=== PATIENT | male | born 1960 | race Caucasian/White ===

== ENCOUNTER 2022-08-31 05:56 | Day surgery (SDC) | payer MEDICARE, MEDICAID ==
[~2022-08-31] VITALS: Ht 160 cm; Wt 88.9 kg
[~2022-08-31 05:56] MED LIST: ASPI81TA26 PO; FENO145T7 PO; LISI10TA22 PO; METF500T13 PO; MULT-90 PO; OMEP-173 PO; SIMV40TA20 PO
[2022-08-31] MEDS ORDERED: LIDOCAINE 3.5 % 1ML OPHTH TOPICAL GEL OU ONE (06:00)
[2022-08-31] MEDS ORDERED: LIDOCAINE 1% SDV 5ML VIAL As Ordered ONE (06:47)
[2022-08-31] MEDS ORDERED: CEFUROXIME 1MG/0.1ML INTRACAMERAL INJ As Ordered ONE (06:48)
[2022-08-31] MEDS ORDERED: MIDAZOLAM INJ 2MG/2ML VIAL As Ordered ONE (07:06)
[2022-08-31] MEDS ORDERED: fentaNYL 100 MCG/2 ML INJECTION As Ordered ONE (07:06)
[2022-08-31] MEDS ORDERED: mitoMYcin 0.2 MG/VIAL KIT FOR OPHTHALMIC USE As Ordered ONE (07:07)
[2022-08-31] MEDS ORDERED: POVIDONE-IODINE 5% OPHTH PREP SOL 30ML As Ordered ONE (07:46)
[2022-08-31 08:00] VITALS: BP 124/59
== END 2022-08-31 08:15 | disposition home or self-care (01) ==
LOC: M SDC 05:56
PROVIDERS: ATTEND Ophthalmology
DX: H40.1110 Primary open-angle glaucoma, right eye, stage unspecified (principal); I10 Essential (primary) hypertension; E78.5 Hyperlipidemia, unspecified; E11.9 Type 2 diabetes mellitus without complications; Z79.82 Long term (current) use of aspirin; Z79.899 Other long term (current) drug therapy
CPT/HCPCS: 66183; C1783; J2250; J3010; J7315

== ENCOUNTER 2022-09-14 06:16 | Day surgery (SDC) | payer MEDICARE, MEDICAID ==
[~2022-09-14] VITALS: Ht 154.9 cm; Wt 87.1 kg
[~2022-09-14 06:16] MED LIST changes: +LIDOCAINE 3.5 % 1ML OPHTH TOPICAL GEL OU ONE
[2022-09-14] MEDS ORDERED: LIDOCAINE 1% SDV 5ML VIAL As Ordered ONE ×2 (06:43→07:37)
[2022-09-14] MEDS ORDERED: CEFUROXIME 1MG/0.1ML INTRACAMERAL INJ As Ordered ONE (06:44)
[2022-09-14] MEDS ORDERED: mitoMYcin 0.2 MG/VIAL KIT FOR OPHTHALMIC USE As Ordered ONE (07:15)
[2022-09-14 08:11] VITALS: BP 181/58
== END 2022-09-14 08:40 | disposition home or self-care (01) ==
LOC: M SDC 06:16
PROVIDERS: ATTEND Ophthalmology
DX: H40.1120 Primary open-angle glaucoma, left eye, stage unspecified (principal); H42 Glaucoma in diseases classified elsewhere; E11.39 Type 2 diabetes mellitus with other diabetic ophthalmic complication; I10 Essential (primary) hypertension; Z79.899 Other long term (current) drug therapy
CPT/HCPCS: 66183; C1783; J7315

== ENCOUNTER 2023-11-17 09:54 | Day surgery (SDC) | payer MEDICARE, MEDICAID ==
[~2023-11-17] VITALS: Ht 154.9 cm; Wt 85.3 kg
[~2023-11-17 09:54] MED LIST changes: -LIDOCAINE 3.5 % 1ML OPHTH TOPICAL GEL OU ONE; +MIDAZOLAM INJ 2MG/2ML VIAL As Ordered ONE; +MULT400T10 PO; +PHENYLEPHRINE 10% OPHTH SOL 5ML OD PRN; +VASC1CAP2 PO; +XALA0.007
[2023-11-17] MEDS: LIDOCAINE 3.5 % 1ML OPHTH TOPICAL GEL OU ONE (12:17)
[2023-11-17] MEDS: ATROPINE SULFATE 1% OPHTH SOLN 2ML BTL OD SCH (12:17)
[2023-11-17] MEDS: OFLOXACIN 0.3 % (OCUFLOX) OPTH SOL 5ML OD ONE (12:17)
[2023-11-17] MEDS: TROPICAMIDE 1% OPHTH SOLN 15ML OD SCH (12:17)
[2023-11-17] MEDS: PHENYLEPHRINE 2.5% OPHTH SOL 2ML OD SCH (12:17)
[2023-11-17] MEDS: BSS IRRIG/VANCO(10MG)/TOBRA(5MG)/EPINEPH(1:1000-0.5CC)500ML BAG-ORONLY As Ordered ONE (13:13)
[2023-11-17] MEDS: CEFUROXIME 1MG/0.1ML INTRACAMERAL INJ As Ordered ONE (13:13)
[2023-11-17] MEDS: DUOVISC (0.50ML VISCOAT/0.85ML PROVISC) OPHTH KIT As Ordered ONE (13:13)
[2023-11-17] MEDS: LIDOCAINE 1% SDV 5ML VIAL As Ordered ONE (13:13)
[2023-11-17 13:39] VITALS: BP 136/64; TEMP 97.3; O2SAT 96
== END 2023-11-17 13:58 | disposition home or self-care (01) ==
LOC: M SDC 09:54
PROVIDERS: ATTEND Ophthalmology
DX: H25.11 Age-related nuclear cataract, right eye (principal); H40.1111 Primary open-angle glaucoma, right eye, mild stage; E11.9 Type 2 diabetes mellitus without complications; Z79.899 Other long term (current) drug therapy
CPT/HCPCS: 66991; C1783; J0697; J2250; V2632

== ENCOUNTER 2023-11-24 06:17 | Day surgery (SDC) | payer MEDICARE, MEDICAID ==
[~2023-11-24] VITALS: Ht 154.9 cm; Wt 87.7 kg
[~2023-11-24 06:17] MED LIST changes: +LIDOCAINE 3.5 % 1ML OPHTH TOPICAL GEL OU ONE; -MIDAZOLAM INJ 2MG/2ML VIAL As Ordered ONE; -PHENYLEPHRINE 10% OPHTH SOL 5ML OD PRN; +PHENYLEPHRINE 10% OPHTH SOL 5ML OS PRN
[2023-11-24] MEDS: PHENYLEPHRINE 2.5% OPHTH SOL 2ML OS SCH (06:47)
[2023-11-24] MEDS: OFLOXACIN 0.3 % (OCUFLOX) OPTH SOL 5ML OS ONE (06:47)
[2023-11-24] MEDS: ATROPINE SULFATE 1% OPHTH SOLN 2ML BTL OS SCH (06:47)
[2023-11-24] MEDS: TROPICAMIDE 1% OPHTH SOLN 15ML OS SCH (06:48)
[2023-11-24] MEDS ORDERED: fentaNYL 100 MCG/2 ML INJECTION As Ordered ONE (07:29)
[2023-11-24] MEDS ORDERED: MIDAZOLAM INJ 2MG/2ML VIAL As Ordered ONE (07:29)
[2023-11-24] MEDS: CEFUROXIME 1MG/0.1ML INTRACAMERAL INJ As Ordered ONE (08:28)
[2023-11-24] MEDS: BSS IRRIG/VANCO(10MG)/TOBRA(5MG)/EPINEPH(1:1000-0.5CC)500ML BAG-ORONLY As Ordered ONE (08:28)
[2023-11-24] MEDS: DUOVISC (0.50ML VISCOAT/0.85ML PROVISC) OPHTH KIT As Ordered ONE (08:28)
[2023-11-24] MEDS: LIDOCAINE 1% SDV 5ML VIAL As Ordered ONE (08:28)
[2023-11-24] MEDS ORDERED: CARBACHOL 0.01% OPHTH SOLN 1.5ML VIAL As Ordered ONE (08:38)
[2023-11-24 09:08] VITALS: BP 114/59; TEMP 98.1; O2SAT 99
== END 2023-11-24 09:23 | disposition home or self-care (01) ==
LOC: M SDC 06:17
PROVIDERS: ATTEND Ophthalmology
DX: E11.36 Type 2 diabetes mellitus with diabetic cataract (principal); H25.12 Age-related nuclear cataract, left eye; H40.9 Unspecified glaucoma; E78.00 Pure hypercholesterolemia, unspecified; K21.9 Gastro-esophageal reflux disease without esophagitis; Z79.82 Long term (current) use of aspirin; Z79.899 Other long term (current) drug therapy; Z85.6 Personal history of leukemia; Z87.19 Personal history of other diseases of the digestive system; Z90.49 Acquired absence of other specified parts of digestive tract
CPT/HCPCS: 66991; C1783; J0697; J2250; J3010; V2632